=== PATIENT | male | born 1985 | race Two or more races ===

== ENCOUNTER 2021-03-09 07:37 | Emergency (ER) | payer OTHER ==
[~2021-03-09] VITALS: Ht 175.3 cm; Wt 101.2 kg
[2021-03-09 08:44] LABS: ALANINE AMINOTRANSFERASE 68 U/L (12-78); ALBUMIN 3.6 g/dL (3.4-5.0); CREATININE 1.09 mg/dL (0.7-1.3)
[2021-03-09 08:46] LABS: ALKALINE PHOSPHATASE 93 U/L (45-117); BASOPHILS % (AUTO) 1 % (0-1); BILIRUBIN,TOTAL 0.2 mg/dL (0.2-1.0); EOSINOPHILS % (AUTO) 1 % (1-7); LYMPHOCYTES % (AUTO) 26 % (22-44); MEAN CORPUSCULAR HEMOGLOBIN 33.7 pg (27.5-34.5); MEAN CORPUSCULAR HGB CONC 34.6 g/dL (33.2-36.2); MEAN PLATELET VOLUME 8.2 fL (7.4-10.4); MONOCYTES % (AUTO) 6 % (2-9); NEUTROPHILS % (AUTO) 66 % (42-75); PLATELET COUNT 311 x10^3/uL (130-400); RED BLOOD COUNT 4.54 x10^6/uL (4.38-5.82); RED CELL DISTRIBUTION WIDTH 13.7 % (9.4-14.8); TOTAL PROTEIN 7.9 g/dL (6.4-8.2)
--- NOTE | 2021-03-09 08:49 | NUR ---
hospital supervisor: Pt ambulatory to room from lobby at this time.
[2021-03-09 08:53] LABS: ANION GAP 6 mmol/L (5-15); CHLORIDE 110 mmol/L (98-107)
--- NOTE | 2021-03-09 09:13 | NUR ---
PT BIB FRIEND VIA POV. PER PT HE IS HERE FOR ETOH WITHDRAWL AND WOULD LIKE RESOURCES TO QUIT DRINKING. PT STATES LAST DRINK WAS THIS AM, 2 SHOTS OF RUM. PT STATES HE USUALLY DRINKS 1/2 PINT OF RUM DAILY. PT NON TREMULOUS, A&OX4, STEADY ON FEET. PT STATES HE JUST FEELS EXTREMELY ANXIOUS AND WOULD LIKE HELP TO QUIT DRINKING. PT RESTING IN [facility], MONITORING IN PLACE, NADN AT THIS TIME, AWAITING EDTARIQ DEGROOT.
[2021-03-09 09:15] VITALS: BP 141/93
[2021-03-09] MEDS ORDERED: PROMETHAZINE 25MG TABLET PO ONE (09:30)
[2021-03-09] MEDS ORDERED: PROMETHAZINE 25MG TABLET ONE (09:46)
== END 2021-03-09 10:51 | disposition home or self-care (01) ==
LOC: ED 09:47
DX: F10.139 Alcohol abuse with withdrawal, unspecified (principal); R11.0 Nausea; F41.9 Anxiety disorder, unspecified; F17.200 Nicotine dependence, unspecified, uncomplicated; Y90.0 Blood alcohol level of less than 20 mg/100 ml
CPT/HCPCS: 36415; 80053; 83690; 85025; 99283; Q0169